=== PATIENT | male | born 1990 | race Caucasian/White ===

== ENCOUNTER 2016-10-10 14:14 | Emergency (ER) | payer SELFPAY ==
[~2016-10-10] VITALS: Ht 175.3 cm; Wt 61.2 kg
[~2016-10-10 14:14] MED LIST: AGM875T PO; AMOX500C2 PO; AZIT500T2; BSP10T PO; CPR250T PO; HSC375CCR PO; HYDR-34 PO; HYDR1TAB PO; HYDR1TAB86 PO; HYOS0.1216 PO; HYOS0.1217 PO; HYOS0.3710 PO; LEVO500T69 PO; NAPR-243 PO; ONDA-42 SL; ONDAN4ODT PO; PHEN200T27 PO; [UNRECOGNIZED DRUG - OTHER]
[2016-10-10] MEDS ORDERED: FLUORESCEIN (FLUOR-I-STRIPS) 1 MG STRP OU ONE (14:30)
[2016-10-10] MEDS ORDERED: TETRACAINE 0.5% OPHTH SOLN 15 ML BTL OU ONE (14:30)
[2016-10-10] MEDS ORDERED: BSS 15 ML IR ONE (14:30)
[2016-10-10] MEDS ORDERED: RX-GENTAMICIN 0.3% OP OINT 3.5 GM TUBE OP STA (14:38)
--- NOTE | 2016-10-10 14:49 | ED EENT ---
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 HE REPORTS FEELING LIKE THERE IS SOMETHING IN HIS EYE. HE DOES REPORT FLUSHING EYE RADIOLOGY THERAPIST. NO VISUAL CHANGES REPORTED AT THIS TIME. Source: patient Exam Limitations: no limitations History of Present Illness Time seen by provider: 14:46 Initial Comments To ER with foreign body sensation to the right eye. He was cutting trees at work today when it was windy and believes a piece of debris flew back and of the right eye. Denies vision changes. Timing/Duration: abrupt Severity: moderate Location: eye (R) Allergies and Home Medications Allergies Coded Allergies: NKANo Known Allergies (Unverified Allergy, Mild, 06/11/09) Home Medications Hyoscyamine Sulfate 0.125 Mg Tab #10 1-2 EACH PO Q4HR PRN PRN PRN ABDOMINAL PAIN Prescribed by: TON SANTOYO on 08/10/14 0201 Ondansetron Hcl 4 Mg Tab #5 4 MG SL Q4H FOR NAUSEA AND VOMITING Prescribed by: TON SANTOYO on 08/10/14 0201 Review of Systems Constitutional: see HPI Eyes: No Symptoms Reported Ears: See HPI Pain Nose: no symptoms reported Mouth: no symptoms reported Throat: no symptoms reported Respiratory: no symptoms reported Cardiovascular: no symptoms reported Musculoskeletal: no symptoms reported Skin: no symptoms reported Past Hxyaaqn-Zzkuya-Laqehq Hx Patient Social History Alcohol Use: Denies Use Recreational Drug Use: No Smoking Status: Current Everyday Smoker Recent Foreign Travel: No Contact w/Someone Who Travel: No Recent Infectious Disease Expo: No Recent Hopitalizations: No Physical Abuse Screen: No Sexual Abuse: No Immunizations Up To Date Tetanus Booster (TDap): Unknown Surgeries HX Surgeries: Yes (RENAL STENT) Surgeries: Tonsillectomy Respiratory Hx Respiratory Disorders: No Cardiovascular Hx Cardiac Disorders: Yes Cardiac Disorders: Heart Murmur Neurological Hx Neurological Disorders: No Reproductive System Hx Reproductive Disorders: No Sexually Transmitted Disease: No Genitourinary Hx 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 There is a small corneal abrasion noted to the superior aspect of the cornea. There is a small black less than 1 mm foreign body to the upper eyelid conjunctiva), bilateral eye EOMI, bilateral eye PERRL Ears: bilateral ear TM normal, bilateral ear auricle normal, bilateral ear canal normal Mouth/Throat: normal mouth inspection pharynx normal Neck: non-tender full range of motion Respiratory: no respiratory distress no accessory muscle use Neurologic/Psychiatric: alert normal mood/affect oriented x 3 Skin: normal color warm/dry Progress/Results/Core Measures Results/Orders My Orders Orders-SOPHIE RODRIGUEZ APRN Tetracaine 0.5% Ophth Soln (Tetracaine 0 (10/10/16 14:30) Fluorescein Strips (Qfdhl-J-Fqqejs) (10/10/16 14:30) Balanced Salt Irrigation Soln (Bss Irrig (10/10/16 14:30) Rx-Gentamicin Ophth Oint (Rx-Gentamicin (10/10/16 14:38) Medications Given in ED Current Medications Medications Dose Ordered Sig/Sabrina Route Start Time Stop Time Status Last Admin Dose Admin Balanced Salt Solution 15 ml ONCE ONCE IR 10/10/16 14:30 10/10/16 14:31 DC 10/10/16 14:29 15 ML Fluorescein Sodium 1 mg ONCE ONCE OU 10/10/16 14:30 10/10/16 14:31 DC 10/10/16 14:29 1 MG Tetracaine HCl 1 ml ONCE ONCE OU 10/10/16 14:30 10/10/16 14:31 DC 10/10/16 14:29 1 ML Vital Signs/I&O Vital Sign - Last 12Hours 10/10/16 14:30 Temp 98.9 Pulse 78 Resp 20 B/P 159/96 Pulse Ox 99 O2 Delivery Room Air Blood Pressure Mean: 117 Departure Impression Impression: Primary Impression: Corneal abrasion Qualified Code: S05.01XA - Injury of conjunctiva and corneal abrasion without foreign body, right eye, initial encounter Disposition: 01 HOME, SELF-CARE Condition: Stable Departure-Patient Inst. Decision time for Depature: 14:49 Referrals: BENJAMIN SINGH OD,LOCAL PHYSICIAN (PCP) Primary Care Physician Add. Discharge Instructions: 1. Medication as directed 2. Follow-up with Dr. Singh tomorrow if you're having persistent pain 3. Use 1/2 inch of the antibiotic ointment inside the lower eyelid 3 times daily for 3 days All discharge instructions reviewed with patient and/or family. Voiced understanding. Scripts Ketorolac Tromethamine (Acular)5 Ml Drops1 Drop OP Q6H PRN PAIN 2 Days Prov:SOPHIE RODRIGUEZ APRN 10/10/16 Hydrocodone/Acetaminophen ([place] 5-325 Tablet)1 Each Tablet1 Each PO Q4H PRN PAIN #10 TAB Prov:SOPHIE RODRIGUEZ APRN 10/10/16 Work/School Note: Work Release Form Date Seen in the Emergency Department: Oct 10, 2016 Return to Work: Oct 12, 2016 SOPHIE RODRIGUEZ APRN Oct 10, 2016 14:48
[2016-10-10] MEDS ORDERED: KETO5DRO OP (14:51)
[2016-10-10] MEDS ORDERED: HYDR-757 PO (14:51)
[2016-10-10 15:01] VITALS: BP 159/96
== END 2016-10-10 15:01 | disposition home or self-care (01) ==
LOC: EDUNIT# 14:14 → ER 14:17
DX: S05.01XA Injury of conjunctiva and corneal abrasion without foreign body, right eye, initial encounter (principal); T15.11XA Foreign body in conjunctival sac, right eye, initial encounter; W22.8XXA Striking against or struck by other objects, initial encounter; Y93.H9 Activity, other involving exterior property and land maintenance, building and construction; Y99.0 Civilian activity done for income or pay; F17.210 Nicotine dependence, cigarettes, uncomplicated
CPT/HCPCS: 99283

== ENCOUNTER 2017-02-11 17:52 | Emergency (ER) | payer SELFPAY ==
[~2017-02-11] VITALS: Ht 167.6 cm; Wt 54.4 kg
[~2017-02-11 17:52] MED LIST changes: +HYDR-757 PO; +KETO5DRO OP
--- NOTE | 2017-02-11 18:08 | ED GI ---
General Chief Complaint: Abdominal/GI Problems Stated Complaint: CHILLS/VOMITING/DIARRHEA Nursing Triage Note: to ER with mother with reports of vomiting and diarrhea. Patient reports that he has been under a lot of stress and had to turn his brother in to the police last night and has been nauseated and vomiting and had diarrhea since. Sepsis Screen: No Definite Risk Source of Information: Patient, Family (mom) Exam Limitations: No Limitations (GRICELDA HALL) History of Present Illness Time Seen By Provider: 18:00 Initial Comments Patient presents with a 1 day history of copious watery diarrhea red in nature he states he has been drinking red Gatorade all day. He states his diarrhea started after he stressed out after having to turn in his brother and he does not have a chronic history of constipation or diarrhea however he has had scopes in the past because of his weight loss and was told that they thought he had irritable bowel syndrome. He states his bowels are normally regular without constipation or soft or loose stools. He does not typically have much abdominal pain. He is having a little abdominal pain today and took an antacid that only made his diarrhea worse. He states in the past few months he has lost another 5 pounds and is in the process of getting an appointment with his primary doctor to get worked up. His mom had a history of hyperthyroidism and was very thin as a child. 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 He has never been tested for HIV or hepatitis. He does have multiple tattoos from a non-license alliance party. He will have 1 or 2 cigarettes a day but does not drink. He daily uses marijuana but does not use IV drugs of abuse. His son recently had a one day Hx of GE with diarrhea. (GRICELDA HALL) Allergies and Home Medications Allergies Coded Allergies: NKANo Known Allergies (Unverified Allergy, Mild, 06/11/09) Home Medications Hydrocodone/Acetaminophen 1 Each Tablet, 1 EACH PO Q4H PRN for PAIN, #10 Prescribed by: SOPHIE RODRIGUEZ on 10/10/16 1451 Hyoscyamine Sulfate 0.125 Mg Tab, 1-2 EACH PO Q4HR PRN PRN for ABDOMINAL PAIN, # 10 Prescribed by: MARCIE ESCOBAR on 08/10/14 0201 Hyoscyamine Sulfate 0.125 Mg Tab.subl, 1-2 TAB SL Q4H, #10 Prescribed by: MARCIE ESCOBAR on 02/11/172002 Ketorolac Tromethamine 5 Ml Drops, 1 DROP OP Q6H PRN for PAIN for 2 Days Prescribed by: SOPHIE RODRIGUEZ on 10/10/16 1451 Ondansetron 4 Mg Tab.rapdis, 4 MG PO Q4H, #10 Prescribed by: MARCIE ESCOBAR on 02/11/172002 Ondansetron Hcl 4 Mg Tab, 4 MG SL Q4H, #5 FOR NAUSEA AND VOMITING Prescribed by: MARCIE ESCOBAR on 08/10/14 0201 Review of Systems Constitutional: see HPI, chills, No diaphoresis, No fever, malaise, weight loss EENTM: No Symptoms Reported Respiratory: Denies Cough, Denies Shortness of Air Cardiovascular: Denies Chest Pain, Denies Lightheadedness, Denies Palpitations , Denies Syncope Gastrointestinal: See HPI, Denies Abdomen Distended, Abdominal Pain, Diarrhea ( 1 day), Denies Nausea, Denies Poor Appetite, Denies Poor Fluid Intake Musculoskeletal: No back pain, No joint pain Skin: No pruritus, No rash (GRCIELDA HALL) Past Cpwjcsr-Vcywlp-Lvypxp Hx Patient Social History Alcohol Use: Denies Use Recreational Drug Use: No Smoking Status: Current Everyday Smoker 2nd Hand Smoke Exposure: Yes Recent Foreign Travel: No Contact w/Someone Who Travel: No Recent Infectious Disease Expo: No Recent Hopitalizations: No (GRICELDA HALL) Alcohol Use: Occasionally Uses Recreational Drug Use: Yes (THC) Smoking Status: Current Everyday Smoker (1 PPD) (MARCIE ESCOBAR DO) Immunizations Up To Date Tetanus Booster (TDap): Unknown (GRICELDA HALL) Seasonal Allergies Seasonal Allergies: No (GRICELDA HALL) Surgeries HX Surgeries: Yes (RENAL STENT) Surgeries: Tonsillectomy (GRICELDA HALL) HX Surgeries: Yes (RIGHT URETERAL STENT-REMOVED) Surgeries: Adenoidectomy, Renal, Tonsillectomy (MARCIE ESCOBAR DO) Respiratory Hx Respiratory Disorders: No (GRICELDA HALL) Hx Respiratory Disorders: No (TIM ESCOBARA Zeeshan FELIPE) Cardiovascular Hx Cardiac Disorders: Yes Cardiac Disorders: Heart Murmur (GRICELDA HALL) Hx Cardiac Disorders: Yes Cardiac Disorders: Heart Murmur (YARELIS,MARCIE K DO) Neurological Hx Neurological Disorders: No (GRICELDA HALL J) Hx Neurological Disorders: No (YARELIS,MARCIE K DO) Reproductive System Hx Reproductive Disorders: No Sexually Transmitted Disease: No (GRICELDA HALL) Genitourinary Hx Genitourinary Disorders: Yes (OBSTRUCTION RIGHT URETEROPELVIC JUNCTION ) (ANGELITO HALLUS J) Hx Genitourinary Disorders: Yes (CHRONIC RIGHT UPJ OBSTRUCTION) (YARELIS,MARCIE K DO) Gastrointestinal Hx Gastrointestinal Disorders: Yes (IBS) Gastrointestinal Disorders: Irritable Bowel (GRICELDA HALL J) Hx Gastrointestinal Disorders: Yes Gastrointestinal Disorders: Irritable Bowel (YARELIS,MARCIE K DO) Musculoskeletal Hx Musculoskeletal Disorders: No (GRICELDA HALL) Hx Musculoskeletal Disorders: Yes Musculoskeletal Disorders: Scoliosis (YARELIS,MARCIE K DO) Endocrine Hx Endocrine Disorders: No (GRICELDA HALL) Hx Endocrine Disorders: No (YARELIS,MARCIE K DO) HEENT HX ENT Disorders: No (GRICELDA HALL) HX ENT Disorders: No (YARELIS,MARCIE K DO) Cancer Hx Cancer: No (YARELIS,MARCIE K DO) Psychosocial Hx Psychiatric Problems: No (GRICELDA HALL J) Hx Psychiatric Problems: No (YARELIS,MARCIE K DO) Integumentary HX Skin/Integumentary Disorder: No (YARELIS,MARCIE K DO) Blood Transfusions Hx Blood Disorders: No (GRICELDA HALL) Hx Blood Disorders: No (YARELIS,MARCIE K DO) Physical Exam Vital Signs VS - Last 72 Hours, by Label 02/11/17 02/11/17 17:58 20:29 Temp 98.2 98.2 Pulse 79 81 Resp 18 18 B/P (MAP) 134/91 Pulse Ox 100 98 O2 Delivery Room Air (YARELIS,MARCIE K DO) Vital Signs Capillary Refill : Less Than 3 Seconds (GRICELDA HALL) General Appearance: WD/WN, mild distress HEENT: PERRL/EOMI, pharynx normal Neck: full range of motion, normal inspection Respiratory: lungs clear, normal breath sounds Cardiovascular: normal peripheral pulses, regular rate, rhythm Gastrointestinal: normal bowel sounds, soft, no organomegaly, no pulsatile mass , tenderness (mild diffuse) Extremities: non-tender, normal inspection, no pedal edema Back: normal inspection, no CVA tenderness, no vertebral tenderness (GRICELDA HALL) Progress/Results/Core Measures Results/Orders Lab Results Laboratory Tests Test 02/11/17 18:10 02/11/17 19:18 Range/Units White Blood Count 11.0 4.3-11.0 10^3/uL Red Blood Count 4.99 4.35-5.85 10^6/uL Hemoglobin 15.6 13.3-17.7 G/DL Hematocrit 45 40-54 % Mean Corpuscular Volume 90 80-99 FL Mean Corpuscular Hemoglobin 31 25-34 PG Mean Corpuscular Hemoglobin Concent 35 32-36 G/DL Red Cell Distribution Width 12.2 10.0-14.5 % Platelet Count 197 130-400 10^3/uL Mean Platelet Volume 9.9 7.4-10.4 FL Neutrophils (%) (Auto) 88 H 42-75 % Lymphocytes (%) (Auto) 5 L 12-44 % Monocytes (%) (Auto) 7 0-12 % Eosinophils (%) (Auto) 0 0-10 % Basophils (%) (Auto) 0 0-10 % Neutrophils # (Auto) 9.7 H 1.8-7.8 X 10^3 Lymphocytes # (Auto) 0.6 L 1.0-4.0 X 10^3 Monocytes # (Auto) 0.7 0.0-1.0 X 10^3 Eosinophils # (Auto) 0.0 0.0-0.3 10^3/uL Basophils # (Auto) 0.0 0.0-0.1 10^3/uL Neutrophils % (Manual) 83 % Lymphocytes % (Manual) 8 % Monocytes % (Manual) 9 % Eosinophils % (Manual) 0 % Basophils % (Manual) 0 % Band Neutrophils 0 % Blood Morphology Comment NORMAL Sodium Level 139 135-145 MMOL/L Potassium Level 3.9 3.6-5.0 MMOL/L Chloride Level 103 98-107 MMOL/L Carbon Dioxide Level 27 21-32 MMOL/L Anion Gap 9 5-14 MMOL/L Blood Urea Nitrogen 13 7-18 MG/DL Creatinine 0.85 0.60-1.30 MG/DL Estimat Glomerular Filtration Rate > 60 BUN/Creatinine Ratio 15 Glucose Level 109 H 70-105 MG/DL Calcium Level 9.6 8.5-10.1 MG/DL Magnesium Level 2.3 1.8-2.4 MG/DL Total Bilirubin 1.7 H 0.1-1.0 MG/DL Aspartate Amino Transf (AST/SGOT) 19 5-34 U/L Alanine Aminotransferase (ALT/SGPT) 18 0-55 U/L Alkaline Phosphatase 55 40-136 U/L Total Protein 6.8 6.4-8.2 G/DL Albumin 4.8 H 3.2-4.5 G/DL Amylase Level 30 25-125 U/L Lipase 9 8-78 U/L Thyroid Stimulating Hormone (TSH) 0.42 0.35-4.94 UIU/ML Urine Color YELLOW Urine Clarity CLEAR Urine pH 6 5-9 Urine Specific [place] 1.015 L 1.016-1.022 Urine Protein 1+ H NEGATIVE Urine Glucose (UA) NEGATIVE NEGATIVE Urine Ketones NEGATIVE NEGATIVE Urine Nitrite NEGATIVE NEGATIVE Urine Bilirubin NEGATIVE NEGATIVE Urine Urobilinogen NORMAL NORMAL MG/DL Urine Leukocyte Esterase NEGATIVE NEGATIVE Urine RBC (Auto) NEGATIVE NEGATIVE Urine RBC RARE /HPF Urine WBC RARE /HPF Urine Crystals NONE /LPF Urine Bacteria NEGATIVE /HPF Urine Casts NONE /LPF Urine Mucus LARGE H /LPF Urine Culture Indicated NO Urine Opiates Screen NEGATIVE NEGATIVE Urine Oxycodone Screen NEGATIVE NEGATIVE Urine Methadone Screen NEGATIVE NEGATIVE Urine Propoxyphene Screen NEGATIVE NEGATIVE Urine Barbiturates Screen NEGATIVE NEGATIVE Ur Tricyclic Antidepressants Screen NEGATIVE NEGATIVE Urine Phencyclidine Screen NEGATIVE NEGATIVE Urine Amphetamines Screen NEGATIVE NEGATIVE Urine Methamphetamines Screen NEGATIVE NEGATIVE Urine Benzodiazepines Screen NEGATIVE NEGATIVE Urine Cocaine Screen NEGATIVE NEGATIVE Urine Cannabinoids Screen POSITIVE H NEGATIVE (MARCIE ESCOBAR DO) My Orders Orders - MARCIE ESCOBAR DO Ua Culture If Indicated (02/11/17 18:25) Saline Lock/Iv-Start (02/11/17 18:43) Lactated Ringers (Lr 1000 Ml Iv Solution (02/11/17 18:43) Ct Abdomen/Pelvis W (02/11/17 18:44) Acute Abd Series (02/11/17 18:44) Drug Screen Stat (Urine) (02/11/17 18:45) Iohexol Injection (Omnipaque 350 Mg/Ml 1 (02/11/17 19:00) Ns (Ivpb) (Sodium Chloride 0.9% Ivpb Bag (02/11/17 19:00) Rx-Hyoscyamine Tab (Rx-Levsin Sl) (02/11/17 20:04) Rx-Ondansetron Po (Rx-Zofran Po) (02/11/17 20:04) Rx-Hyoscyamine Tab (Rx-Levsin Sl) (02/11/17 20:15) Rx-Ondansetron Po (Rx-Zofran Po) (02/11/17 20:15) (MARCIE ESCOBAR DO) Medications Given in ED Current Medications Medications Dose Ordered Sig/Sabrina Route Start Time Stop Time Status Last Admin Dose Admin Iohexol 100 ml ONCE ONCE IV 02/11/17 19:00 02/11/17 20:29 DC 02/11/17 18:59 100 ML Lactated Ringer's 1,000 ml @ 0 mls/hr Q0M ONCE IV 02/11/17 18:43 02/11/17 18:44 DC 02/11/17 19:17 0 MLS/HR Sodium Chloride 100 ml ONCE ONCE IV 02/11/17 19:00 02/11/17 20:29 DC 02/11/17 19:00 80 ML (MARCIE ESCOBAR DO) Vital Signs/I&O Vital Sign - Last 12Hours 02/11/17 02/11/17 17:58 20:29 Temp 98.2 98.2 Pulse 79 81 Resp 18 18 B/P (MAP) 134/91 Pulse Ox 100 98 O2 Delivery Room Air (MARCIE ESCOBAR DO) Blood Pressure Mean: 105 Progress Note : Time: 18:13 Progress Note His 1 day history of diarrhea is not as concerning symptoms light of his cachectic appearance and recent weight loss. Would add thyroid panel and HIV. Have impressed upon him that he will need to follow-up with a primary care physician to continue this workup. (GRICELDA HALL) Progress Note : Progress Note 1809--ASSUMED CARE FROM DR. HALL, ALL STUDIES PENDING NO VOMITING OR DIARRHEA DURING ER STAY--STATES HE FEELS BETTER (MARCIE ESCOBAR DO) Diagnostic Imaging Comments ACUTE ABDOMEN XRAYS--SCOLIOSIS, OTHERWISE NO ACUTE PROCESS CT ABDOMEN / PELVIS--NO ACUTE PROCESS, CHRONIC RIGHT UPJ OBSTRUCTION PER RADIOLOGIST REPORTS @ 195 Reviewed: Reviewed by Me (MARCIE ESCOBAR DO) Transfer of Care Transfer of Care Time: 18:18 Care transferred to: Marcie Escobar MD (GRICELDA HALL) Departure Impression Impression: Primary Impression: Gastroenteritis Additional Impressions: CHRONIC RIGHT UPJ OBSTRUCTION Illicit drug use Disposition: HOME, SELF-CARE Condition: Stable Departure-Patient Inst. Referrals: NO,LOCAL PHYSICIAN (PCP/Family) Primary Care Physician Patient Instructions: Viral Gastroenteritis, Adult (DC) Add. Discharge Instructions: CLEAR LIQUIDS--WATER, BROTH, JELLO, GATORADE TOMORROW IF YOU ARE BETTER, ADD BRATS DIET TO CLEAR LIQUIDS FOLLOW UP WITH [facility] IN 2 DAYS IF NO BETTER RETURN TO ER IF WORSE All discharge instructions reviewed with patient and/or family. Voiced understanding. Scripts Ondansetron (Zofran Odt) 4 Mg Tab.rapdis 4 MG PO Q4H for Nausea/Vomiting, #10 TAB Prov: MARCIE ESCOBAR DO 02/11/17 Hyoscyamine Sulfate (Levsin-Sl) 0.125 Mg Tab.subl 1-2 TAB SL Q4H for Abdominal Pain, #10 TAB Prov: MARCIE ESCOBAR DO 02/11/17 GRICELDA HALL February 11, 2017 18:08 MARCIE ESCOBAR DO February 11, 2017 19:03
[2017-02-11 18:18] LABS: BASOPHILS % (AUTO) 0 % (0-10); EOSINOPHILS % (AUTO) 0 % (0-10); LYMPHOCYTES # (AUTO) 0.6 X 10^3 (1.0-4.0); LYMPHOCYTES % (AUTO) 5 % (12-44); MEAN CORPUSCULAR HEMOGLOBIN 31 PG (25-34); MEAN CORPUSCULAR HGB CONC 35 G/DL (32-36); MEAN CORPUSCULAR VOLUME 90 FL (80-99); MEAN PLATELET VOLUME 9.9 FL (7.4-10.4); MONOCYTES # (AUTO) 0.7 X 10^3 (0.0-1.0); MONOCYTES % (AUTO) 7 % (0-12); NEUTROPHILS # (AUTO) 9.7 X 10^3 (1.8-7.8); NEUTROPHILS % (AUTO) 88 % (42-75); PLATELET COUNT 197 10^3/uL (130-400); RED BLOOD COUNT 4.99 10^6/uL (4.35-5.85); RED CELL DISTRIBUTION WIDTH 12.2 % (10.0-14.5)
[2017-02-11 18:38] LABS: BAND NEUTROPHILS 0 %; LYMPHOCYTES % (MANUAL) 8 %; NEUTROPHILS % (MANUAL) 83 %
[2017-02-11 18:39] LABS: BASOPHILS % (MANUAL) 0 %; EOSINOPHILS % (MANUAL) 0 %
[2017-02-11 18:40] LABS: ALANINE AMINOTRANSFERASE 18 U/L (0-55); ALBUMIN 4.8 G/DL (3.2-4.5); AMYLASE 30 U/L (25-125); ANION GAP 9 MMOL/L (5-14); ASPARTATE AMINO TRANSFERASE 19 U/L (5-34); BILIRUBIN,TOTAL 1.7 MG/DL (0.1-1.0); BLOOD UREA NITROGEN 13 MG/DL (7-18); BUN/CREATININE RATIO 15; CALCIUM 9.6 MG/DL (8.5-10.1); CARBON DIOXIDE 27 MMOL/L (21-32); CHLORIDE 103 MMOL/L (98-107); CREATININE SERUM 0.85 MG/DL (0.60-1.30); GFR ESTIMATED > 60; GLUCOSE 109 MG/DL (70-105); LIPASE 9 U/L (8-78); MAGNESIUM 2.3 MG/DL (1.8-2.4); POTASSIUM 3.9 MMOL/L (3.6-5.0); SODIUM 139 MMOL/L (135-145); TOTAL PROTEIN 6.8 G/DL (6.4-8.2)
[2017-02-11] MEDS ORDERED: LACTATED RINGERS 1,000 ML IV ONE (18:43)
[2017-02-11 19:00] LABS: THYROID STIMULATING HORMONE 0.42 UIU/ML (0.35-4.94)
[2017-02-11] MEDS ORDERED: NS 100 ML (IVPB) BAG IV ONE (19:00)
[2017-02-11] MEDS ORDERED: IOHEXOL 350 MG/ML 100 ML (OMNIPAQUE 350) VIAL IV ONE (19:00)
[2017-02-11 19:24] LABS: BILIRUBIN,URINE NEGATIVE (NEGATIVE); KETONES,URINE NEGATIVE (NEGATIVE); LEUKOCYTE ESTERASE ,URINE NEGATIVE (NEGATIVE); NITRITE,URINE NEGATIVE (NEGATIVE); PH,URINE 6 (5-9); PROTEIN,URINE 1+ (NEGATIVE); UROBILINOGEN,URINE NORMAL (NORMAL)
[2017-02-11 19:43] LABS: WBC,URINE RARE /HPF
--- NOTE | 2017-02-11 19:43 | Diagnostic Imaging Report ---
CLINICAL INDICATION: Patient with severe mid abdominal pain with nausea and diarrhea since last night. EXAMS: X-ray of the chest PA view and x-ray of the abdomen supine and upright views. COMPARISONS: X-ray of the abdomen dated 08/24/2011. FINDINGS: LUNGS/ PLEURA: Lungs are clear. There is no pneumothorax. There is no pleural effusion. MEDIASTINUM: Unremarkable. PULMONARY VASCULATURE: Unremarkable. HEART: Unremarkable. BONES/ EXTRATHORACIC SOFT TISSUE: There is dextroscoliosis of the thoracic spine. ABDOMEN AND PELVIS: Unremarkable x-ray of the abdomen with nonobstructed bowel gas pattern. There is no evidence of abdominal free air. There are no focal calcifications overlying the expected regions/ pathways of both kidneys, ureters, and bladder regions. IMPRESSION: 1: Unremarkable chest x-ray exam with no radiographic evidence of acute cardiopulmonary process. 2: Unremarkable x-ray of the abdomen. 3: There is dextroscoliosis of the thoracic spine. Dictated by: Dictated on workstation # [id number]
--- NOTE | 2017-02-11 19:53 | Diagnostic Imaging Report ---
CLINICAL INDICATION: Patient with upper abdominal pain with nausea, vomiting, and diarrhea x10 hours. Patient has left renal stent. EXAM: CT scan of the abdomen and pelvis performed with 100 cc Omnipaque 350 IV contrast. Coronal and sagittal reformatted images are created. COMPARISON: CT scan of abdomen and pelvis with contrast dated 08/10/2014. FINDINGS: Lung bases are clear. Again seen levoscoliosis of the thoracolumbar spine. Again seen moderate to severe right hydronephrosis which appears to represent right UPJ obstruction. The degree of right hydronephrosis has slightly decreased in size with the AP dimension of the renal pelvis measuring 3.6 cm in AP dimension compared to the prior study measured at 3.9 cm. Otherwise, both kidneys show no other significant abnormality. There is no urinary tract stones. There is no perinephric fat stranding. The liver, spleen, pancreas, adrenal glands, and gallbladder are unremarkable and stable. The small and large bowel show no significant interval abnormality. The appendiceal region is not visualized on this exam due to closely packed intestines and intra-abdominal structures. There is no intra-abdominal free air or free fluid. Bladder is fluid distended with no gross abnormality. The extra-abdominal and extrapelvic soft tissue structures are unremarkable. IMPRESSION: 1.: There is slight decreased size of the moderate to severe right hydronephrosis likely related to UPJ obstruction. 2.: Otherwise stable CT scan of the abdomen and pelvis. Dictated by: Dictated on workstation # [id number]
[2017-02-11] MEDS ORDERED: HYOS0.1283 SL (20:03)
[2017-02-11] MEDS ORDERED: ONDA4TAB8 PO (20:03)
[2017-02-11] MEDS ORDERED: RX-HYOSCYAMINE 0.125 MG SL (LEVSIN) PPK#6 SL STA (20:04)
[2017-02-11] MEDS ORDERED: RX-ONDANSETRON 4 MG ODT (ZOFRAN) PPK #4 PO STA (20:04)
[2017-02-11] MEDS ORDERED: RX-HYOSCYAMINE 0.125 MG SL (LEVSIN) PPK#6 ONE (20:15)
[2017-02-11] MEDS ORDERED: RX-ONDANSETRON 4 MG ODT (ZOFRAN) PPK #4 ONE (20:15)
[2017-02-11 20:29] VITALS: BP 130/79
== END 2017-02-11 20:29 | disposition home or self-care (01) ==
LOC: EDUNIT# 17:52 → ER 17:53
DX: K52.9 Noninfective gastroenteritis and colitis, unspecified (principal); N13.30 Unspecified hydronephrosis; R11.2 Nausea with vomiting, unspecified; M41.34 Thoracogenic scoliosis, thoracic region; Q63.9 Congenital malformation of kidney, unspecified; F17.210 Nicotine dependence, cigarettes, uncomplicated; F12.90 Cannabis use, unspecified, uncomplicated; Z79.899 Other long term (current) drug therapy
CPT/HCPCS: 36415; 74022; 74177; 80053; 80306; 81000; 82150; 83690; 83735; 84443; 85007; 85027; 86703; 96360

== ENCOUNTER → 2017-02-18 | Emergency (ER) | payer SELFPAY ==
[~2017-02-18] VITALS: Ht 175.3 cm; Wt 55.8 kg
[~2017-02-18] MED LIST changes: +AMOXICILLIN 500 MG (POLYMOX) CAP PO STA; +HYDR-3816 PO; +HYOS0.1283 SL; +LIDOCAINE 2% VISCOUS 15 ML UDC ONE; +LIDOCAINE 2% VISCOUS 15 ML UDC PO ONE; +LIDOCAINE JELLY 2% (XYLOCAINE) 30 ML TUBE TOP ONE; +ONDA4TAB8 PO; +RX-HYDROCODONE/APAP 5/325 MG #4 TAB PK PO PRN
--- NOTE | 2017-02-18 01:59 | ED EENT ---
History of Present Illness General Chief Complaint: Dental Problems/Pain Stated Complaint: TOOTH PAIN Nursing Triage Note: Pt. advises he has been experiencing dental pain x 3 days that has become progressively worse. Source: patient Exam Limitations: no limitations History of Present Illness Time seen by provider: 01:45 Initial Comments Here with report of right lower posterior jaw pain for the last few days but much worse tonight. Take 800 mg ibuprofen and that has not helped. He has been trying to get the dentist but has been unable to as of yet. Denies breathing or swallowing problems. Denies nausea or vomiting. Timing/Duration: gradual Severity: moderate Location: mouth, dental Associated Symptoms: No drooling, facial pain/swelling, No fever, No sore throat, tooth pain, No voice change Allergies and Home Medications Allergies Coded Allergies: NKANo Known Allergies (Unverified Allergy, Mild, 02/18/17) Home Medications Hydrocodone/Acetaminophen 1 Each Tablet, 1 EACH PO Q4H PRN for PAIN, #10 Prescribed by: SOPHIE RODRIGUEZ on 10/10/16 1451 Hyoscyamine Sulfate 0.125 Mg Tab, 1-2 EACH PO Q4HR PRN PRN for ABDOMINAL PAIN, # 10 Prescribed by: TON SANTOYO on 08/10/14 0201 Hyoscyamine Sulfate 0.125 Mg Tab.subl, 1-2 TAB SL Q4H, #10 Prescribed by: TON SANTOYO on 02/11/172002 Ketorolac Tromethamine 5 Ml Drops, 1 DROP OP Q6H PRN for PAIN for 2 Days Prescribed by: SOPHIE RODRIGUEZ on 10/10/16 1451 Ondansetron 4 Mg Tab.rapdis, 4 MG PO Q4H, #10 Prescribed by: TON SANTOYO on 02/11/17 2003 Ondansetron Hcl 4 Mg Tab, 4 MG SL Q4H, #5 FOR NAUSEA AND VOMITING Prescribed by: TON SANTOYO on 08/10/14 0201 Review of Systems Constitutional: see HPI, No chills, No fever Ears: No Symptoms Reported Nose: no symptoms reported Mouth: see HPI, pain, swelling Throat: no symptoms reported Respiratory: no symptoms reported Cardiovascular: no symptoms reported Gastrointestinal: no symptoms reported Past Vennhnf-Uhmjzg-Drzblq Hx Patient Social History Alcohol Use: Denies Use Recreational Drug Use: No Drug of Choice: Marijuana daily Smoking Status: Never a Smoker 2nd Hand Smoke Exposure: Yes Recent Foreign Travel: No Contact w/Someone Who Travel: No Recent Infectious Disease Expo: No Recent Hopitalizations: No Immunizations Up To Date Tetanus Booster (TDap): Unknown Seasonal Allergies Seasonal Allergies: No Surgeries HX Surgeries: Yes (RIGHT URETERAL STENT-REMOVED) Surgeries: Adenoidectomy, Renal, Tonsillectomy Respiratory Hx Respiratory Disorders: No Cardiovascular Hx Cardiac Disorders: Yes Cardiac Disorders: Heart Murmur Neurological Hx Neurological Disorders: No Reproductive System Hx Reproductive Disorders: No Sexually Transmitted Disease: No Genitourinary Hx Genitourinary Disorders: Yes (CHRONIC RIGHT UPJ OBSTRUCTION) Gastrointestinal Hx Gastrointestinal Disorders: Yes Gastrointestinal Disorders: Irritable Bowel Musculoskeletal Hx Musculoskeletal Disorders: Yes Musculoskeletal Disorders: Scoliosis Endocrine Hx Endocrine Disorders: No HEENT HX ENT Disorders: No Cancer Hx Cancer: No Psychosocial Hx Psychiatric Problems: No Integumentary HX Skin/Integumentary Disorder: No Blood Transfusions Hx Blood Disorders: No Reviewed Nursing Assessment Reviewed/Agree w Nursing PMH: Yes Family Medical History Significant Family History: No Pertinent Family Hx Physical Exam Vital Signs Vital Sign - Last 12Hours 02/18/17 01:48 Temp 98.7 Pulse 78 Resp 14 B/P (MAP) 132/91 Pulse Ox 98 O2 Delivery Room Air General Appearance: WD/WN, no apparent distress Eyes: bilateral eye EOMI, bilateral eye PERRL, bilateral eye normal inspection Nose: normal inspection Mouth/Throat: pharynx normal, dental tenderness (right lower wisdom tooth and rear molar on right) Neck: full range of motion, supple Cardiovascular: regular rate, rhythm, no murmur Respiratory: lungs clear, normal breath sounds Gastrointestinal: non tender, soft Neurologic/Psychiatric: alert, oriented x 3 Skin: normal color, warm/dry Progress/Results/Core Measures Results/Orders My Orders Orders - RICHARD FIERRO MD Lidocaine 2% Jelly 30 Ml (Xylocaine Jell (02/18/17 02:00) Rx-Hydrocodone/Apap 5-325 Mg (Rx-Vicodin (02/18/17 02:00) Amoxicillin Capsule (Polymox Capsule) (02/18/17 01:52) Vital Signs/I&O Vital Sign - Last 12Hours 02/18/17 01:48 Temp 98.7 Pulse 78 Resp 14 B/P (MAP) 132/91 Pulse Ox 98 O2 Delivery Room Air Blood Pressure Mean: 105 Progress Note : Progress Note Seen and evaluated. Lidocaine jelly topical. Hydrocodone go pack and amoxicillin 1000 mg by mouth. Discharged home with return precautions. Patient verbalize understanding instructions and agreement with plan. Departure Impression Impression: Primary Impression: Dental caries Additional Impression: Acute pericoronitis Disposition: HOME, SELF-CARE Condition: Improved Departure-Patient Inst. Decision time for Depature: 01:57 Referrals: NO,LOCAL PHYSICIAN (PCP/Family) Primary Care Physician Patient Instructions: Dental Pain (DC), Gingivitis (DC) Add. Discharge Instructions: All discharge instructions reviewed with patient and/or family. Voiced understanding. Take medications as directed. Follow-up with a dentist as soon as possible. Rinse mouth twice daily with saltwater solution as discussed. Return for worse pain, swelling, swallowing or breathing problems or other concerns as needed. Continue to brush teeth twice daily. Scripts Hydrocodone/Acetaminophen (Hydrocodon-Acetaminoph 7.5-325) 1 Each Tablet 1 EACH PO Q6H, #10 TAB 0 Refills Prov: RICHARD FIERRO MD 02/18/17 Amoxicillin (Amoxicillin) 500 Mg Capsule 500 MG PO TID, #30 CAP 0 Refills Prov: RICHARD FIERRO MD 02/18/17 RICHARD FIERRO MD February 18, 2017 01:59
[2017-02-18 02:13] VITALS: BP 132/91
== END | disposition home or self-care (01) ==
LOC: EDUNIT# 01:38 → ER 01:41
DX: K05.20 Aggressive periodontitis, unspecified (principal); K02.9 Dental caries, unspecified
CPT/HCPCS: 99283

== ENCOUNTER 2017-06-20 16:09 | Emergency (ER) | payer OTHER ==
[~2017-06-20] VITALS: Ht 175.3 cm; Wt 55.8 kg
[~2017-06-20 16:09] MED LIST changes: -AMOXICILLIN 500 MG (POLYMOX) CAP PO STA; -LIDOCAINE 2% VISCOUS 15 ML UDC ONE; -LIDOCAINE 2% VISCOUS 15 ML UDC PO ONE; -LIDOCAINE JELLY 2% (XYLOCAINE) 30 ML TUBE TOP ONE; -RX-HYDROCODONE/APAP 5/325 MG #4 TAB PK PO PRN
--- NOTE | 2017-06-20 16:28 | ED Cardiac General ---
History of Present Illness General Chief Complaint: Cardiac/General Problems Stated Complaint: HIGH HEART RATE Nursing Triage Note: Patient reports palpitations x 1 week Source: patient Exam Limitations: no limitations History of Present Illness Time seen by provider: 16:26 Initial Comments To ER with reports of sweating a lot and palpitations for one week. He also has some shortness of breath. He feels as though his heart is beating quickly. He's never had this before. He does state that he feels a little bit anxious and he has a nervous person. Denies any drug use. States "I'll just randomly be listening to his son and start crying". States that he has blood pressure that he is checked at home and found it to be elevated and became very worried about this. Timing/Duration: intermittent Severity: mild NTG SL TOP KNITTER: No ASA po TOP KNITTER: No Allergies and Home Medications Allergies Coded Allergies: NKANo Known Allergies (Unverified Allergy, Mild, 02/18/17) Home Medications Amoxicillin 500 Mg Capsule, 500 MG PO TID, #30 Ref 0 Prescribed by: RICHARD FIERRO on 02/18/17 015 Hydrocodone/Acetaminophen 1 Each Tablet, 1 EACH PO Q4H PRN for PAIN, #10 Prescribed by: SOPHIE RODRIGUEZ on 10/10/16 1451 Hydrocodone/Acetaminophen 1 Each Tablet, 1 EACH PO Q6H, #10 Ref 0 Prescribed by: RICHARD FIERRO on 02/18/17 015 Hyoscyamine Sulfate 0.125 Mg Tab, 1-2 EACH PO Q4HR PRN PRN for ABDOMINAL PAIN, # 10 Prescribed by: TON SANTOYO on 08/10/14 020 Hyoscyamine Sulfate 0.125 Mg Tab.subl, 1-2 TAB SL Q4H, #10 Prescribed by: TON SANTOYO on 02/11/172002 Ketorolac Tromethamine 5 Ml Drops, 1 DROP OP Q6H PRN for PAIN for 2 Days Prescribed by: SOPHIE RODRIGUEZ on 10/10/16 145 Ondansetron 4 Mg Tab.rapdis, 4 MG PO Q4H, #10 Prescribed by: TON SANTOYO on 02/11/172002 Ondansetron Hcl 4 Mg Tab, 4 MG SL Q4H, #5 FOR NAUSEA AND VOMITING Prescribed by: TON SANTOYO on 08/10/14 020 Review of Systems Constitutional: see HPI EENTM: No Symptoms Reported Respiratory: No Symptoms Reported Cardiovascular: No Symptoms Reported Past Cmlsuqv-Gajfiq-Rytybm Hx Patient Social History Alcohol Use: Denies Use Recreational Drug Use: No Drug of Choice: Marijuana daily Smoking Status: Never a Smoker 2nd Hand Smoke Exposure: Yes Recent Foreign Travel: No Contact w/Someone Who Travel: No Recent Infectious Disease Expo: No Recent Hopitalizations: No Immunizations Up To Date Tetanus Booster (TDap): Unknown Seasonal Allergies Seasonal Allergies: No Surgeries History of Surgeries: Yes (RENAL STENT) Surgeries: Adenoidectomy, Renal, Tonsillectomy Respiratory History of Respiratory Disorde: No Cardiovascular History of Cardiac Disorders: Yes Cardiac Disorders: Heart Murmur Neurological History of Neurological Disord: No Reproductive System Hx Reproductive Disorders: No Sexually Transmitted Disease: No Genitourinary History of Genitourinary Disor: No Gastrointestinal History of Gastrointestinal Di: Yes (IBS) Gastrointestinal Disorders: Irritable Bowel Musculoskeletal History of Musculoskeletal Dis: No Musculoskeletal Disorders: Scoliosis Endocrine History of Endocrine Disorders: No HEENT History of HEENT Disorders: No Cancer History of Cancer: No Psychosocial History of Psychiatric Problem: No Integumentary History of Skin or Integumenta: No Blood Transfusions History of Blood Disorders: No Family Medical History Significant Family History: No Pertinent Family Hx Physical Exam Vital Signs Vital Sign - Last 12Hours 06/20/17 16:16 Temp 97.6 Pulse 84 Resp 18 B/P (MAP) 146/104 Pulse Ox 99 Capillary Refill : Less Than 3 Seconds General Appearance: No Apparent Distress, WD/WN, Anxious, Thin HEENT: PERRL/EOMI, TMs Normal Neck: Full Range of Motion, Normal Inspection Respiratory: Normal Breath Sounds, No Accessory Muscle Use, No Respiratory Distress Cardiovascular: Regular Rate, Rhythm, Normal Peripheral Pulses Gastrointestinal: Normal Bowel Sounds, Non Tender, Soft Extremity: Normal Capillary Refill, Normal Inspection Neurologic/Psychiatric: Alert, Oriented x3, No Motor/Sensory Deficits Skin: Normal Color, Warm/Dry Other comments Very pleasant and polite gentleman Progress/Results/Core Measures Results/Orders Lab Results Laboratory Tests Test 06/20/17 16:23 Range/Units White Blood Count 7.9 4.3-11.0 10^3/uL Red Blood Count 4.91 4.35-5.85 10^6/uL Hemoglobin 15.6 13.3-17.7 G/DL Hematocrit 44 40-54 % Mean Corpuscular Volume 90 80-99 FL Mean Corpuscular Hemoglobin 32 25-34 PG Mean Corpuscular Hemoglobin Concent 36 32-36 G/DL Red Cell Distribution Width 11.7 10.0-14.5 % Platelet Count 253 130-400 10^3/uL Mean Platelet Volume 9.8 7.4-10.4 FL Neutrophils (%) (Auto) 56 42-75 % Lymphocytes (%) (Auto) 36 12-44 % Monocytes (%) (Auto) 6 0-12 % Eosinophils (%) (Auto) 1 0-10 % Basophils (%) (Auto) 0 0-10 % Neutrophils # (Auto) 4.4 1.8-7.8 X 10^3 Lymphocytes # (Auto) 2.8 1.0-4.0 X 10^3 Monocytes # (Auto) 0.5 0.0-1.0 X 10^3 Eosinophils # (Auto) 0.1 0.0-0.3 10^3/uL Basophils # (Auto) 0.0 0.0-0.1 10^3/uL Erythrocyte Sedimentation Rate 1 0-15 MM/HR Sodium Level 141 135-145 MMOL/L Potassium Level 3.4 L 3.6-5.0 MMOL/L Chloride Level 106 98-107 MMOL/L Carbon Dioxide Level 26 21-32 MMOL/L Anion Gap 9 5-14 MMOL/L Blood Urea Nitrogen 11 7-18 MG/DL Creatinine 0.84 0.60-1.30 MG/DL Estimat Glomerular Filtration Rate > 60 BUN/Creatinine Ratio 13 Glucose Level 88 70-105 MG/DL Calcium Level 9.3 8.5-10.1 MG/DL Total Bilirubin 0.8 0.1-1.0 MG/DL Aspartate Amino Transf (AST/SGOT) 20 5-34 U/L Alanine Aminotransferase (ALT/SGPT) 24 0-55 U/L Alkaline Phosphatase 53 40-136 U/L C-Reactive Protein High Sensitivity 0.01 0.00-0.50 MG/DL Total Protein 6.9 6.4-8.2 GM/DL Albumin 4.7 H 3.2-4.5 GM/DL Thyroid Stimulating Hormone (TSH) 0.84 0.35-4.94 UIU/ML Free Thyroxine 1.15 0.70-1.48 NG/DL My Orders Orders - SOPHIE RODRIGUEZ CARTON REPAIRER Cbc With Automated Diff (06/20/17 16:24) Comprehensive Metabolic Panel (06/20/17 16:24) Ua Culture If Indicated (06/20/17 16:24) Drug Screen Stat (Urine) (06/20/17 16:24) Thyroid Stimulating Hormone (06/20/17 16:24) Free T4 (Free Thyroxine) (06/20/17 16:24) Erythrocyte Sedimentation Rate (06/20/17 16:24) Hs C Reactive Protein (06/20/17 16:24) Ekg Tracing (06/20/17 16:24) Chest Pa/Lat (2 View) (06/20/17 16:24) Saline Lock/Iv-Start (06/20/17 16:24) Lorazepam (06/20/17 16:24) Lorazepam Injection (Ativan Injection) (06/20/17 16:30) Medications Given in ED Current Medications Medications Dose Ordered Sig/Sabrina Route Start Time Stop Time Status Last Admin Dose Admin Lorazepam 0.5 mg ONCE ONCE IVP 06/20/17 16:30 06/20/17 16:31 DC 06/20/17 17:21 0.5 MG Vital Signs/I&O Vital Sign - Last 12Hours 06/20/17 16:16 Temp 97.6 Pulse 84 Resp 18 B/P (MAP) 146/104 Pulse Ox 99 Blood Pressure Mean: 118 Diagnostic Imaging Diagonstic Imaging: Xray Comments NAME: IDALIALEN Evelyn MED REC#: [id number] PT STATUS: REG ER : 1990 PHYSICIAN: SOPHIE RODRIGUEZ CARTON REPAIRER ADMIT DATE: 06/20/17/ER Draft Date of Exam:06/20/17 CHEST PA/LAT (2 VIEW) INDICATION: Weakness. COMPARISON: 02/11/2017. FINDINGS: Frontal and lateral views of the chest demonstrate stable scoliosis. The lungs remain clear. No infiltrate is identified. The heart is normal. There is no pneumothorax. IMPRESSION: No acute cardiopulmonary findings. Dictated on workstation # [id number] Dict: 06/20/17 1647 Trans: 06/20/17 9811 [id number] Interpreted by: MELY SNYDER Electronically signed by: Departure Communication (Admissions) Progress Notes 1800- patient states that the Ativan did help a little bit. Blood pressure down to 138/94. Heart rate down to 60 sinus. No ectopy. Labs are perfect. I discussed this with him. He states "life just has me down, I'm in a bad place ". I did offer to start him on an antidepressant would also help with anxiety. He declines. He states "I think I just need to talk to a counselor". I will provide him with the [facility] save line number to arrange outpatient services. Impression Impression: Primary Impression: Anxiety Additional Impression: Palpitations Disposition: 01 HOME, SELF-CARE Condition: Stable Departure-Patient Inst. Decision time for Depature: 18:00 Referrals: NO,LOCAL PHYSICIAN (PCP/Family) Primary Care Physician Patient Instructions: Anxiety, Adult (DC), Palpitations (DC) Add. Discharge Instructions: 1. Return to ER for any concerns 2. Call [facility] line (also called the "save line") at anytime 24 hours a day for emergencies but they can also help to arrange outpatient services. All discharge instructions reviewed with patient and/or family. Voiced understanding. SOPHIE RODRIGUEZ CARTON REPAIRER Jun 20, 2017 16:28
[2017-06-20] MEDS ORDERED: LORazepam INJ 2 MG/ML (ATIVAN) VIAL IVP ONE (16:30)
[2017-06-20 16:37] LABS: BASOPHILS % (AUTO) 0 % (0-10); EOSINOPHILS # (AUTO) 0.1 10^3/uL (0.0-0.3); EOSINOPHILS % (AUTO) 1 % (0-10); LYMPHOCYTES # (AUTO) 2.8 X 10^3 (1.0-4.0); LYMPHOCYTES % (AUTO) 36 % (12-44); MEAN CORPUSCULAR HEMOGLOBIN 32 PG (25-34); MEAN CORPUSCULAR HGB CONC 36 G/DL (32-36); MEAN CORPUSCULAR VOLUME 90 FL (80-99); MEAN PLATELET VOLUME 9.8 FL (7.4-10.4); MONOCYTES # (AUTO) 0.5 X 10^3 (0.0-1.0); MONOCYTES % (AUTO) 6 % (0-12); NEUTROPHILS # (AUTO) 4.4 X 10^3 (1.8-7.8); NEUTROPHILS % (AUTO) 56 % (42-75); PLATELET COUNT 253 10^3/uL (130-400); RED BLOOD COUNT 4.91 10^6/uL (4.35-5.85); RED CELL DISTRIBUTION WIDTH 11.7 % (10.0-14.5); WHITE BLOOD COUNT 7.9 10^3/uL (4.3-11.0)
--- NOTE | 2017-06-20 16:51 | Diagnostic Imaging Report ---
INDICATION: Weakness. COMPARISON: 02/11/2017. FINDINGS: Frontal and lateral views of the chest demonstrate stable scoliosis. The lungs remain clear. No infiltrate is identified. The heart is normal. There is no pneumothorax. IMPRESSION: No acute cardiopulmonary findings. Dictated by: Dictated on workstation # [id number]
[2017-06-20 16:57] LABS: ALANINE AMINOTRANSFERASE 24 U/L (0-55); ALBUMIN 4.7 GM/DL (3.2-4.5); ANION GAP 9 MMOL/L (5-14); ASPARTATE AMINO TRANSFERASE 20 U/L (5-34); BILIRUBIN,TOTAL 0.8 MG/DL (0.1-1.0); BLOOD UREA NITROGEN 11 MG/DL (7-18); BUN/CREATININE RATIO 13; CALCIUM 9.3 MG/DL (8.5-10.1); CARBON DIOXIDE 26 MMOL/L (21-32); CHLORIDE 106 MMOL/L (98-107); CREATININE SERUM 0.84 MG/DL (0.60-1.30); GFR ESTIMATED > 60; GLUCOSE 88 MG/DL (70-105); POTASSIUM 3.4 MMOL/L (3.6-5.0); SODIUM 141 MMOL/L (135-145); TOTAL PROTEIN 6.9 GM/DL (6.4-8.2); hs C REACTIVE PROTEIN 0.01 MG/DL (0.00-0.50)
[2017-06-20 17:02] LABS: ERYTHROCYTE SEDIMENTATION RATE 1 MM/HR (0-15)
[2017-06-20 17:18] LABS: THYROID STIMULATING HORMONE 0.84 UIU/ML (0.35-4.94)
[2017-06-20 18:13] VITALS: BP 134/88
== END 2017-06-20 18:12 | disposition home or self-care (01) ==
LOC: EDUNIT# 16:09 → ER 16:11
DX: F41.9 Anxiety disorder, unspecified; K58.9 Irritable bowel syndrome, unspecified; Z90.89 Acquired absence of other organs; Z96.0 Presence of urogenital implants
CPT/HCPCS: 36415; 71020; 80053; 80346; 84439; 84443; 85025; 85652; 86141; 93005; 96374

== ENCOUNTER 2017-10-12 08:14 | Emergency (ER) | payer SELFPAY ==
[~2017-10-12] VITALS: Ht 175.3 cm; Wt 59.0 kg
[2017-10-12] MEDS ORDERED: ONDANSETRON 4 MG/2 ML (SDV) Z0FRAN IVP ONE (08:30)
[2017-10-12] MEDS ORDERED: NS IV 1000 ML 1,000 ML IV SCH (08:30)
[2017-10-12 09:10] LABS: BASOPHILS % (AUTO) 0 % (0-10); EOSINOPHILS % (AUTO) 1 % (0-10); HEMATOCRIT 46 % (40-54); HEMOGLOBIN 16.5 G/DL (13.3-17.7); LYMPHOCYTES # (AUTO) 1.3 X 10^3 (1.0-4.0); LYMPHOCYTES % (AUTO) 21 % (12-44); MEAN CORPUSCULAR HEMOGLOBIN 32 PG (25-34); MEAN CORPUSCULAR HGB CONC 36 G/DL (32-36); MEAN CORPUSCULAR VOLUME 89 FL (80-99); MEAN PLATELET VOLUME 9.8 FL (7.4-10.4); MONOCYTES # (AUTO) 0.4 X 10^3 (0.0-1.0); MONOCYTES % (AUTO) 7 % (0-12); NEUTROPHILS # (AUTO) 4.2 X 10^3 (1.8-7.8); NEUTROPHILS % (AUTO) 72 % (42-75); PLATELET COUNT 209 10^3/uL (130-400); RED BLOOD COUNT 5.14 10^6/uL (4.35-5.85); RED CELL DISTRIBUTION WIDTH 11.7 % (10.0-14.5); WHITE BLOOD COUNT 5.9 10^3/uL (4.3-11.0)
[2017-10-12 09:30] LABS: ALANINE AMINOTRANSFERASE 20 U/L (0-55); ALBUMIN 4.6 GM/DL (3.2-4.5); ALKALINE PHOSPHATASE 60 U/L (40-136); BILIRUBIN,TOTAL 0.4 MG/DL (0.1-1.0); BUN/CREATININE RATIO 11; CALCIUM 9.4 MG/DL (8.5-10.1); CARBON DIOXIDE 26 MMOL/L (21-32); CHLORIDE 106 MMOL/L (98-107); CREATININE SERUM 0.84 MG/DL (0.60-1.30); GFR ESTIMATED > 60; GLUCOSE 101 MG/DL (70-105); POTASSIUM 3.9 MMOL/L (3.6-5.0); SODIUM 143 MMOL/L (135-145); TOTAL PROTEIN 6.9 GM/DL (6.4-8.2)
[2017-10-12 10:47] LABS: BILIRUBIN,URINE NEGATIVE (NEGATIVE); CLARITY,URINE CLEAR; COLOR,URINE YELLOW; GLUCOSE, URINE (UA) NEGATIVE (NEGATIVE); KETONES,URINE NEGATIVE (NEGATIVE); LEUKOCYTE ESTERASE ,URINE NEGATIVE (NEGATIVE); NITRITE,URINE NEGATIVE (NEGATIVE); PH,URINE 6 (5-9); PROTEIN,URINE NEGATIVE (NEGATIVE); UROBILINOGEN,URINE NORMAL (NORMAL)
[2017-10-12 10:58] LABS: BACTERIA,URINE NEGATIVE /HPF; SQUAMOUS EPITHELIAL CELL,UR RARE /HPF
--- NOTE | 2017-10-12 11:57 | ED Abdominal Pain ---
General Chief Complaint: Abdominal/GI Problems Stated Complaint: N/V/D Nursing Triage Note: Pt c/o n/v since 0400. Pt also reports diarrhea x2-3 days. Sepsis Screen: No Definite Risk Source of Information: Patient Exam Limitations: No Limitations History of Present Illness Time Seen By Provider: 11:40 Initial Comments Here with report of diarrhea that started yesterday morning and vomiting that started this morning. States he had copious diarrhea yesterday and several episodes of vomiting today. Denies significant abdominal pain. No report of fever but did have some chills. No report of blood in vomit or stool. Patient was treated prior to my evaluation and states she is actually feeling much better now. Timing/Duration: 1-2 Days Severity/Quality: Moderate, Cramping Location: Generalized Abdomen Modifying Factors: Improves With Defecating, Worsens With Eating, Improves With Vomiting Associated Symptoms: No Chest Pain, Nausea/Vomiting, No Shortness of Air, Weakness Allergies and Home Medications Allergies Coded Allergies: NKANo Known Allergies (Unverified Allergy, Mild, 02/18/17) Home Medications Amoxicillin 500 Mg Capsule, 500 MG PO TID, #30 Ref 0 Prescribed by: RICHARD FIERRO on 02/18/17 0159 Hydrocodone/Acetaminophen 1 Each Tablet, 1 EACH PO Q4H PRN for PAIN, #10 Prescribed by: SOPHIE RODRIGUEZ on 10/10/16 1451 Hydrocodone/Acetaminophen 1 Each Tablet, 1 EACH PO Q6H, #10 Ref 0 Prescribed by: RICHARD FIERRO on 02/18/17 0159 Hyoscyamine Sulfate 0.125 Mg Tab, 1-2 EACH PO Q4HR PRN PRN for ABDOMINAL PAIN, # 10 Prescribed by: TON SANTOYO on 08/10/14 0201 Hyoscyamine Sulfate 0.125 Mg Tab.subl, 1-2 TAB SL Q4H, #10 Prescribed by: TON SANTOYO on 02/11/172002 Ketorolac Tromethamine 5 Ml Drops, 1 DROP OP Q6H PRN for PAIN for 2 Days Prescribed by: SOPHIE RODRIGUEZ on 10/10/16 1451 Ondansetron 4 Mg Tab.rapdis, 4 MG PO Q4H, #10 Prescribed by: TON SANTOYO on 02/11/17 2003 Ondansetron Hcl 4 Mg Tab, 4 MG SL Q4H, #5 FOR NAUSEA AND VOMITING Prescribed by: TON SANTOYO on 08/10/14 0201 Review of Systems Constitutional: see HPI, chills, No fever EENTM: No Symptoms Reported Respiratory: No Symptoms Reported Cardiovascular: No Symptoms Reported Gastrointestinal: See HPI, Abdominal Pain, Diarrhea, Nausea, Vomiting Genitourinary: No Symptoms Reported Musculoskeletal: no symptoms reported All Other Systems Reviewed Negative Unless Noted: Yes Past Qjjtnog-Khjmwb-Mcfmmg Hx Patient Social History Alcohol Use: Denies Use Recreational Drug Use: No Drug of Choice: Marijuana daily Smoking Status: Current Everyday Smoker 2nd Hand Smoke Exposure: Yes Recent Foreign Travel: No Contact w/Someone Who Travel: No Recent Infectious Disease Expo: No Recent Hopitalizations: No Immunizations Up To Date Tetanus Booster (TDap): Unknown Seasonal Allergies Seasonal Allergies: No Surgeries History of Surgeries: Yes (RENAL STENT) Surgeries: Adenoidectomy, Renal, Tonsillectomy Respiratory History of Respiratory Disorde: No Cardiovascular History of Cardiac Disorders: Yes Cardiac Disorders: Heart Murmur Neurological History of Neurological Disord: No Reproductive System Hx Reproductive Disorders: No Sexually Transmitted Disease: No Genitourinary History of Genitourinary Disor: No Gastrointestinal History of Gastrointestinal Di: Yes (IBS) Gastrointestinal Disorders: Irritable Bowel Musculoskeletal History of Musculoskeletal Dis: No Musculoskeletal Disorders: Scoliosis Endocrine History of Endocrine Disorders: No HEENT History of HEENT Disorders: No Cancer History of Cancer: No Psychosocial History of Psychiatric Problem: No Integumentary History of Skin or Integumenta: No Blood Transfusions History of Blood Disorders: No Reviewed Nursing Assessment Reviewed/Agree w Nursing PMH: Yes Family Medical History Significant Family History: No Pertinent Family Hx Physical Exam Vital Signs VS - Last 72 Hours, by Label 10/12/17 08:50 Temp 98.5 Pulse 68 Resp 18 B/P (MAP) 129/93 (105) Pulse Ox 99 O2 Delivery Room Air Capillary Refill : Less Than 3 Seconds General Appearance: WD/WN, no apparent distress HEENT: PERRL/EOMI, pharynx normal Neck: full range of motion, supple Respiratory: lungs clear, normal breath sounds Cardiovascular: regular rate, rhythm, no murmur Peripheral Pulses: 2+ Dorsalis Pedis (R), 2+ Left Dors-Pedis (L), 2+ Radial Pulses (R), 2+ Radial Pulses (L) Gastrointestinal: non tender, soft Extremities: non-tender, normal inspection Neurologic/Psychiatric: alert, oriented x 3 Skin: normal color, warm/dry Progress/Results/Core Measures Results/Orders Lab Results Laboratory Tests Test 10/12/17 09:02 10/12/17 10:30 Range/Units White Blood Count 5.9 4.3-11.0 10^3/uL Red Blood Count 5.14 4.35-5.85 10^6/uL Hemoglobin 16.5 13.3-17.7 G/DL Hematocrit 46 40-54 % Mean Corpuscular Volume 89 80-99 FL Mean Corpuscular Hemoglobin 32 25-34 PG Mean Corpuscular Hemoglobin Concent 36 32-36 G/DL Red Cell Distribution Width 11.7 10.0-14.5 % Platelet Count 209 130-400 10^3/uL Mean Platelet Volume 9.8 7.4-10.4 FL Neutrophils (%) (Auto) 72 42-75 % Lymphocytes (%) (Auto) 21 12-44 % Monocytes (%) (Auto) 7 0-12 % Eosinophils (%) (Auto) 1 0-10 % Basophils (%) (Auto) 0 0-10 % Neutrophils # (Auto) 4.2 1.8-7.8 X 10^3 Lymphocytes # (Auto) 1.3 1.0-4.0 X 10^3 Monocytes # (Auto) 0.4 0.0-1.0 X 10^3 Eosinophils # (Auto) 0.0 0.0-0.3 10^3/uL Basophils # (Auto) 0.0 0.0-0.1 10^3/uL Sodium Level 143 135-145 MMOL/L Potassium Level 3.9 3.6-5.0 MMOL/L Chloride Level 106 98-107 MMOL/L Carbon Dioxide Level 26 21-32 MMOL/L Anion Gap 11 5-14 MMOL/L Blood Urea Nitrogen 9 7-18 MG/DL Creatinine 0.84 0.60-1.30 MG/DL Estimat Glomerular Filtration Rate > 60 BUN/Creatinine Ratio 11 Glucose Level 101 70-105 MG/DL Calcium Level 9.4 8.5-10.1 MG/DL Total Bilirubin 0.4 0.1-1.0 MG/DL Aspartate Amino Transf (AST/SGOT) 20 5-34 U/L Alanine Aminotransferase (ALT/SGPT) 20 0-55 U/L Alkaline Phosphatase 60 40-136 U/L Total Protein 6.9 6.4-8.2 GM/DL Albumin 4.6 H 3.2-4.5 GM/DL Urine Color YELLOW Urine Clarity CLEAR Urine pH 6 5-9 Urine Specific Ulysses 1.010 L 1.016-1.022 Urine Protein NEGATIVE NEGATIVE Urine Glucose (UA) NEGATIVE NEGATIVE Urine Ketones NEGATIVE NEGATIVE Urine Nitrite NEGATIVE NEGATIVE Urine Bilirubin NEGATIVE NEGATIVE Urine Urobilinogen NORMAL NORMAL MG/DL Urine Leukocyte Esterase NEGATIVE NEGATIVE Urine RBC (Auto) NEGATIVE NEGATIVE Urine RBC NONE /HPF Urine WBC NONE /HPF Urine Squamous Epithelial Cells RARE /HPF Urine Crystals NONE /LPF Urine Bacteria NEGATIVE /HPF Urine Casts NONE /LPF Urine Mucus SMALL H /LPF Urine Culture Indicated NO Medications Given in ED Current Medications Medications Dose Ordered Sig/Sabrina Route Start Time Stop Time Status Last Admin Dose Admin Ondansetron HCl 8 mg ONCE ONCE IVP 10/12/17 08:30 10/12/17 08:31 DC 10/12/17 09:01 8 MG Vital Signs/I&O Vital Sign - Last 12Hours 10/12/17 08:50 Temp 98.5 Pulse 68 Resp 18 B/P (MAP) 129/93 (105) Pulse Ox 99 O2 Delivery Room Air Blood Pressure Mean: 105 Progress Note : Progress Note Seen and evaluated. Patient did receive 1 L normal saline as well as 4 mg of Zofran IV. This did markedly improve his symptoms. Overall feeling much better now. Labs and UA are reviewed. Discharged home with return precautions. Patient verbalize understanding instructions and agreement with plan. Departure Impression Impression: Primary Impression: Nausea and vomiting Qualified Codes: R11.2 - Nausea with vomiting, unspecified Additional Impressions: Dehydration Acute diarrhea Disposition: HOME, SELF-CARE Condition: Improved Departure-Patient Inst. Decision time for Depature: 11:56 Referrals: NO,LOCAL PHYSICIAN (PCP/Family) Primary Care Physician Patient Instructions: Dehydration, Adult (DC), Diarrhea and Traveler's Diarrhea , Adult (DC), Nausea and Vomiting, Adult (DC) Add. Discharge Instructions: All discharge instructions reviewed with patient and/or family. Voiced understanding. Take medications as directed. Clear liquid diet for 24 hours and advance as tolerated. Return for worse pain, fever, vomiting, weakness, breathing problems or other concerns as needed. Follow-up with your doctor regarding evaluation and and thyroid studies as needed. Scripts Promethazine HCl (Promethazine Tablet) 25 Mg Tablet 25 MG PO Q8H Y for NAUSEA/VOMITING, #14 TAB 0 Refills Prov: RICHARD FIERRO MD 10/12/17 RICHARD FIERRO MD Oct 12, 2017 11:57
[2017-10-12] MEDS ORDERED: PROM25TA14 PO (11:58)
[2017-10-12 12:04] VITALS: BP 136/89
== END 2017-10-12 12:08 | disposition home or self-care (01) ==
LOC: EDUNIT# 08:14 → ER 08:16
DX: E86.0 Dehydration (principal); R11.2 Nausea with vomiting, unspecified; R19.7 Diarrhea, unspecified; F17.210 Nicotine dependence, cigarettes, uncomplicated; K58.9 Irritable bowel syndrome, unspecified; Z90.89 Acquired absence of other organs; Z96.0 Presence of urogenital implants
CPT/HCPCS: 36415; 80053; 81000; 85025

== ENCOUNTER 2018-06-06 18:25 | Emergency (ER) | payer OTHER ==
[~2018-06-06] VITALS: Ht 154.9 cm; Wt 54.4 kg
[~2018-06-06 18:25] MED LIST changes: -HYDR-3816 PO; +HYDR-4226 PO; -HYDR-757 PO; +PROM25TA14 PO
[2018-06-06] MEDS ORDERED: DEXAMETHASONE PF 10 MG/ML (DECADRON) VIAL ONE (18:39)
--- NOTE | 2018-06-06 18:39 | ED Integumentary General ---
General Chief Complaint: Skin/Wound Problems Stated Complaint: POISON DEE, SWELLING IN EYES Source: patient Exam Limitations: no limitations History of Present Illness Date Seen by Provider: Jun 06, 2018 Time Seen by Provider: 18:37 Initial Comments To ER with itching around both of his eyes. This began last night. He states that he gets poison dee several times yearly this is typically how it starts, he states that he is normally gets a shot of steroids and this helps improve his symptoms dramatically. Timing/Duration: just prior to arrival Severity: moderate Location: face Allergies and Home Medications Allergies Coded Allergies: NKANo Known Allergies (Unverified Allergy, Mild, 02/18/17) Home Medications Amoxicillin 500 Mg Capsule, 500 MG PO TID Prescribed by: RICHARD FIERRO on 02/18/17 015 Hydrocodone Bit/Acetaminophen 1 Each Tablet, 1 EACH PO Q6H Prescribed by: RICHARD FIERRO on 02/18/17 015 Hydrocodone/Acetaminophen 1 Each Tablet, 1 EACH PO Q4H PRN for PAIN Prescribed by: SOPHIE RODRIGUEZ on 10/10/16 145 Hyoscyamine Sulfate 0.125 Mg Tab, 1-2 EACH PO Q4HR PRN PRN for ABDOMINAL PAIN Prescribed by: TON SANTOYO on 08/10/14 020 Hyoscyamine Sulfate 0.125 Mg Tab.subl, 1-2 TAB SL Q4H Prescribed by: TON SANTOYO on 02/11/172002 Ketorolac Tromethamine 5 Ml Drops, 1 DROP OP Q6H PRN for PAIN Prescribed by: SOPHIE RODRIGUEZ on 10/10/16 145 Ondansetron 4 Mg Tab.rapdis, 4 MG PO Q4H Prescribed by: TON SANTOYO on 02/11/172002 Ondansetron Hcl 4 Mg Tab, 4 MG SL Q4H FOR NAUSEA AND VOMITING Prescribed by: TON SANTOYO on 08/10/14 020 Promethazine HCl 25 Mg Tablet, 25 MG PO Q8H PRN for NAUSEA/VOMITING Prescribed by: RICHARD FIERRO on 10/12/17 1158 Patient Home Medication List Home Medication List Reviewed: Yes Review of Systems Review of Systems Constitutional: see HPI EENTM: see HPI Respiratory: no symptoms reported Cardiovascular: no symptoms reported Genitourinary: no symptoms reported Musculoskeletal: no symptoms reported Skin: see HPI Psychiatric/Neurological: No Symptoms Reported Endocrine: No Symptoms Reported Hematologic/Lymphatic: No Symptoms Reported Past Llvdxlq-Tucjjx-Vxzhao Hx Patient Social History Drug of Choice: Marijuana daily 2nd Hand Smoke Exposure: Yes Recent Foreign Travel: No Contact w/Someone Who Travel: No Recent Hopitalizations: No Immunizations Up To Date Tetanus Booster (TDap): Unknown Seasonal Allergies Seasonal Allergies: No Past Medical History Surgeries: Yes (RENAL STENT) Adenoidectomy, Renal, Tonsillectomy Respiratory: No Cardiac: Yes Heart Murmur Neurological: No Reproductive Disorders: No Sexually Transmitted Disease: No Genitourinary: No Gastrointestinal: Yes (IBS) Irritable Bowel Musculoskeletal: No Scoliosis Endocrine: No HEENT: No Cancer: No Psychosocial: No Integumentary: No Blood Disorders: No Family Medical History No Pertinent Family Hx Physical Exam Vital Signs Capillary Refill : General Appearance: WD/WN, no apparent distress HEENT: PERRL/EOMI, normal ENT inspection, TMs normal, other (there is no periorbital edema or rash) Neck: non-tender, full range of motion Cardiovascular: regular rate, rhythm, no murmur Respiratory: normal breath sounds, no respiratory distress, no accessory muscle use Gastrointestinal: normal bowel sounds, non tender Neurologic/Psychiatric: alert, normal mood/affect, oriented x 3 Skin: normal color, warm/dry Skin Problem Location: face Departure Impression Primary Impression: Contact dermatitis due to poison dee Disposition: 01 HOME, SELF-CARE Condition: Stable Departure-Patient Inst. Decision time for Depature: 18:39 Referrals: NO,LOCAL PHYSICIAN (PCP/Family) Primary Care Physician Patient Instructions: Poison Dee Add. Discharge Instructions: 1. Return to ER for any concerns 2. Follow-up with your doctor later this week All discharge instructions reviewed with patient and/or family. Voiced understanding. SOPHIE RODRIGUEZ [employer] Jun 06, 2018 18:39
[2018-06-06] MEDS ORDERED: DEXAMETHASONE 10 MG/ML (DECADRON) 1 ML VIAL IM ONE (18:45)
[2018-06-06 18:48] VITALS: BP 132/87
== END 2018-06-06 18:48 | disposition home or self-care (01) ==
LOC: EDUNIT# 18:25 → ER 18:26
DX: L23.7 Allergic contact dermatitis due to plants, except food (principal); F12.10 Cannabis abuse, uncomplicated; Z77.22 Contact with and (suspected) exposure to environmental tobacco smoke (acute) (chronic); Z90.89 Acquired absence of other organs; Z96.0 Presence of urogenital implants; Z87.19 Personal history of other diseases of the digestive system
CPT/HCPCS: 96374; 99284

== ENCOUNTER 2018-11-04 07:02 | Emergency (ER) | payer OTHER ==
[~2018-11-04] VITALS: Ht 175.3 cm; Wt 54.4 kg
[2018-11-04] MEDS ORDERED: IBUPROFEN 800 MG (MOTRIN) TAB PO STA (07:30)
[2018-11-04] MEDS ORDERED: ONDANSETRON 4 MG (ZOFRAN) ORAL DISSOLVE TAB SL STA (07:30)
--- NOTE | 2018-11-04 08:01 | ED Cough/URI ---
General Chief Complaint: Cough/Cold/Flu Symptoms Stated Complaint: VOMITING;FEVER;BODY ACHE;WEAKNESS Nursing Triage Note: PT AMBULATED TO ROOM 6 PT CO OF COLD COUGH AND FLU SX. PT STATES HAS HAD FEVER EARLY THIS AM 101.5 AND NAUSEA THIS AM Sepsis Screen: No Definite Risk Source: patient Exam Limitations: no limitations History of Present Illness Date Seen by Provider: Nov 04, 2018 Time Seen by Provider: 07:45 Initial Comments Here with complaint of fever, chills, cough and vomiting since about 330 this morning. Reports vomiting several times. He did not take anything over-the- counter for his fever but did take a cold bath. Arrives without fever is morning. Timing/Duration: this morning Severity/Quality: moderate, dry cough Associated Symptoms: cough, fever/chills, muscle aches, nasal congestion, sore throat Allergies and Home Medications Allergies Coded Allergies: NKANo Known Allergies (Unverified Allergy, Mild, 02/18/17) Home Medications No Active Prescriptions or Reported Meds Patient Home Medication List Home Medication List Reviewed: Yes Review of Systems Review of Systems Constitutional: see HPI, chills, fever EENTM: see HPI Respiratory: see HPI; No wheezing Cardiovascular: no symptoms reported Gastrointestinal: No abdominal pain, No diarrhea; nausea, vomiting Skin: no symptoms reported Past Nvqdlpb-Hnuywt-Cjzxbm Hx Past Med/Social Hx: Reviewed Nursing Past Med/Soc Hx Patient Social History Alcohol Use: Denies Use Drug of Choice: Marijuana daily Type Used: Electronic/Vapor 2nd Hand Smoke Exposure: Yes Recent Foreign Travel: No Contact w/Someone Who Travel: No Recent Infectious Disease Expo: No Recent Hopitalizations: No Immunizations Up To Date Tetanus Booster (TDap): Unknown Seasonal Allergies Seasonal Allergies: No Past Medical History Surgeries: Yes (RENAL STENT) Adenoidectomy, Renal, Tonsillectomy Respiratory: No Cardiac: Yes Heart Murmur Neurological: No Reproductive Disorders: No Sexually Transmitted Disease: No Genitourinary: Yes (ONE FUNCTIONING KIDNEY) Gastrointestinal: Yes (IBS) Irritable Bowel Musculoskeletal: No Scoliosis Endocrine: No HEENT: No Cancer: No Psychosocial: No Integumentary: No Blood Disorders: No Family Medical History Reviewed Nursing Family Hx No Pertinent Family Hx Physical Exam Vital Signs - First Documented 11/04/18 07:15 Temp 99.5 Pulse 91 Resp 14 B/P (MAP) 130/70 (90) Pulse Ox 98 Capillary Refill : Less Than 3 Seconds Height: 5'9.00" Weight: 120lbs. oz. 54.588294fa; 19.93 BMI Method:Stated General Appearance: WD/WN, no apparent distress HEENT: PERRL/EOMI, TMs normal, pharyngeal erythema; No tonsillar exudate Neck: full range of motion, supple; No lymphadenopathy (R), No lymphadenopathy (L) Respiratory: lungs clear, normal breath sounds, no respiratory distress Cardiovascular: regular rate, rhythm, no murmur Gastrointestinal: non tender, soft Neurologic/Psychiatric: alert, normal mood/affect, oriented x 3 Skin: normal color, warm/dry Progress/Results/Core Measures Suspected Sepsis Recent Fever Within 48 Hours: No Infection Criteria Present: None New/Unexplained Altered Menta: No Sepsis Screen: No Definite Risk SIRS Temperature:99.5 Pulse: 91 Respiratory Rate: 14 Blood Pressure 130 /70 Mean: 90 Results/Orders Micro Results Microbiology 11/04/18 Influenza Types A,B Antigen ([place]) - Final, Complete My Orders Orders - RICHARD FIERRO MD Ondansetron Oral Dissolve Tab (Zofran (11/04/18 07:30) Influenza A And B Antigens (11/04/18 07:30) Ibuprofen Tablet (Motrin Tablet) (11/04/18 07:30) Vital Signs/I&O 11/04/18 07:15 Temp 99.5 Pulse 91 Resp 14 B/P (MAP) 130/70 (90) Pulse Ox 98 Capillary Refill : Less Than 3 Seconds Blood Pressure Mean: 90 Progress Note : Progress Note Seen and evaluated. Zofran 4 mg by mouth and ibuprofen 800 mg by mouth ordered. Monitor patient. 0825: Overall feeling better. Influenza negative. Discharged home with return precautions. Patient verbalize understanding instructions and agreement with plan. Departure Impression Primary Impression: Influenza-like symptoms Disposition: 01 HOME, SELF-CARE Condition: Stable Departure-Patient Inst. Decision time for Depature: 08:27 Referrals: NO,LOCAL PHYSICIAN (PCP/Family) Primary Care Physician Patient Instructions: Viral Upper Respiratory Infection, Adult (DC), Fever, Adult (DC) Add. Discharge Instructions: All discharge instructions reviewed with patient and/or family. Voiced understanding. You may take ibuprofen 600 mg every 8 hours as needed for fever or pain. You may take Tylenol/acetaminophen 1000 mg every 8 hours as needed for fever or pain. Drink plenty of fluids and get plenty of rest. You may take Benadryl/ diphenhydramine 25 mg every 6 hours as needed for nasal congestion. You may use Afrin nasal spray or the generic, 12 hour relief, 2 sprays to each muscle twice daily for 3 days only and then stop. Do not use more than 3 days. Follow -up with your Dr. in a few days for recheck. Return for worse pain, fever, vomiting, weakness, breathing problems or other concerns as needed. Scripts No Active Prescriptions or Reported Meds RICHARD FIERRO MD Nov 04, 2018 08:01
[2018-11-04 08:37] VITALS: BP 127/82
== END 2018-11-04 08:27 | disposition home or self-care (01) ==
LOC: EDUNIT# 07:02 → ER 07:03
DX: R50.9 Fever, unspecified (principal); R05 Cough; R11.10 Vomiting, unspecified; F12.10 Cannabis abuse, uncomplicated; K58.9 Irritable bowel syndrome, unspecified; Z77.22 Contact with and (suspected) exposure to environmental tobacco smoke (acute) (chronic); Z90.89 Acquired absence of other organs
CPT/HCPCS: 87804

== ENCOUNTER 2021-10-24 14:42 | Emergency (ER) | payer OTHER ==
[~2021-10-24] VITALS: Ht 175 cm; Wt 54.0 kg
[2021-10-24 15:30] VITALS: BP 135/75
--- NOTE | 2021-10-24 15:56 | ED Cough/URI ---
General Chief Complaint: COVID19 Suspect/Confirmed Stated Complaint: FEVER,N/V,CHILLS,KING,ABD PAIN Nursing Triage Note: PT AMB TO RM5 PT CO OF FEVER, N/V, DRY COUGH, BODY ACHES X1 DAY Source: patient Exam Limitations: no limitations History of Present Illness Date Seen by Provider: Oct 24, 2021 Time Seen by Provider: 15:54 Initial Comments Patient is a 31-year-old male who presents ED with flulike symptoms. Symptoms started this morning when he was driving to work. Still have body aches and fatigue. Patient got the [place] vomited 2 or 3 times. Came home vomited a few more times. Took nausea medication with some improvement. Tolerating fluids at bedside. Reports chills body aches generalized joint discomfort. Possible exposure at work to Covid. Not up-to-date of his Covid vaccine. Denies of any chest pain, cough, sore throat, ear pain, decreased urine output. Patient took Tylenol at home for body pains Allergies and Home Medications Allergies Coded Allergies: BEVERLYANo Known Allergies (Unverified Allergy, Mild, 02/18/17) Patient Home Medication List Home Medication List Reviewed: Yes Review of Systems Review of Systems Constitutional: chills; No diaphoresis; fever, malaise, weakness EENTM: No eye pain Respiratory: No orthopnea, No short of breath Cardiovascular: No chest pain, No edema Gastrointestinal: No abdominal pain, No nausea, No vomiting Musculoskeletal: No back pain, No gout, No joint pain; muscle stiffness, muscle cramps Skin: No change in color, No change in hair/nails All Other Systems Reviewed Negative Unless Noted: Yes Past Kfxvxbf-Otjgxc-Vovzhp Hx Patient Social History Tobacco Use?: Yes Tobacco type used: Cigarettes Smoking Status: Current Everyday Smoker Substance use?: No Alcohol Use?: No Pt feels they are or have been: No Immunizations Up To Date Tetanus Booster (TDap): Unknown Seasonal Allergies Seasonal Allergies: No Past Medical History Surgeries: Yes (RENAL STENT) Adenoidectomy, Renal, Tonsillectomy Respiratory: No Cardiac: Yes Heart Murmur Neurological: No Reproductive Disorders: No Sexually Transmitted Disease: No Genitourinary: Yes (ONE FUNCTIONING KIDNEY) Gastrointestinal: Yes (IBS) Irritable Bowel Musculoskeletal: No Scoliosis Endocrine: No HEENT: No Cancer: No Psychosocial: No Integumentary: No Blood Disorders: No Family Medical History No Pertinent Family Hx Physical Exam Vital Signs - First Documented 10/24/21 15:30 Temp 37.8 Pulse 92 Resp 18 B/P (MAP) 135/75 (95) Pulse Ox 98 O2 Delivery Room Air Capillary Refill : Less Than 3 Seconds Height: 5'9.00" Weight: 120lbs. oz. [id number]; 17.00 BMI Method:Stated General Appearance: WD/WN, no apparent distress Eyes: Bilateral Eye Normal Inspection, Bilateral Eye PERRL, Bilateral Eye EOMI HEENT: PERRL/EOMI, normal ENT inspection, TMs normal, pharynx normal Neck: non-tender, full range of motion, supple, normal inspection Respiratory: chest non-tender, lungs clear, normal breath sounds, no respiratory distress, no accessory muscle use Cardiovascular: regular rate, rhythm, no edema, no gallop, no JVD Gastrointestinal: normal bowel sounds, non tender, soft, no organomegaly Extremities: normal range of motion, non-tender, normal inspection, no pedal edema, no calf tenderness Skin: normal color, warm/dry Progress/Results/Core Measures Suspected Sepsis SIRS Temperature: Pulse: 92 Respiratory Rate: 18 Blood Pressure 135 /75 Mean: 95 Results/Orders Lab Results Laboratory Tests Test 10/24/21 15:34 Range/Units Influenza Type A (RT-PCR) Not Detected Not Detecte Influenza Type B (RT-PCR) Not Detected Not Detecte SARS-CoV-2 RNA (RT-PCR) Detected H Not Detecte My Orders Orders - MINH GALINDO Covid 19 Inhouse Test (10/24/21 15:35) Influenza A And B By Pcr (10/24/21 15:35) Vital Signs/I&O 10/24/21 15:30 Temp 37.8 Pulse 92 Resp 18 B/P (MAP) 135/75 (95) Pulse Ox 98 O2 Delivery Room Air Capillary Refill : Less Than 3 Seconds Blood Pressure Mean: 95 Departure Communication (PCP) Patient low-grade temp. Patient took Tylenol before arrival. Patient in no acute distress. Lung sounds clear bilateral. Covid positive. Not up-to-date on his vaccine. Quarantine at home for 10 to 14 days. Recommend hydration. If any worsening symptoms return back to ED for further evaluation. Provided work note. Impression Primary Impression: COVID-19 Disposition: 01 HOME, SELF-CARE Condition: Stable Departure-Patient Inst. Decision time for Depature: 16:34 Referrals: NO,LOCAL PHYSICIAN (PCP/Family) Primary Care Physician Patient Instructions: COVID-19 (DC) Work/School Note: Work Release Form Date Seen in the Emergency Department: Oct 24, 2021 Return to Work: Nov 05, 2021 MINH GALINDO Oct 24, 2021 15:56
== END 2021-10-24 16:39 | disposition home or self-care (01) ==
LOC: EDUNIT# 14:42 → ER 14:44
DX: U07.1 COVID-19 (principal); F17.210 Nicotine dependence, cigarettes, uncomplicated
CPT/HCPCS: 87636; 99283

== ENCOUNTER 2022-05-15 09:15 | Emergency (ER) | payer SELFPAY ==
[~2022-05-15] VITALS: Ht 175.3 cm; Wt 52.2 kg
--- NOTE | 2022-05-15 09:53 | ED General ---
General Chief Complaint: Fever-Adult/Adol Stated Complaint: FEVER - VOMITING - BODY ACHES - COUGH Nursing Triage Note: Pt states that he started having fever, cough, n/v yesterday. Covid+ at home. Source of Information: Patient Exam Limitations: No Limitations History of Present Illness Date Seen by Provider: May 15, 2022 Time Seen by Provider: 09:48 Initial Comments Patient is a 31-year-old male who presents to the emergency department today with a chief complaint of fever, body aches, nonproductive cough, nausea and vomiting. He states he started with body aches yesterday. Today his symptoms have worsened. He did take an at home COVID test and thinks he saw a faintly positive double line. He is a smoker. He denies feeling excessively short of breath. No black or bloody stools. No problems with urination. No rashes, joint pain or swelling. Has taken some avuk-jpr-qvafghi medications for his symptoms. All other review of systems reviewed and negative except as stated Timing/Duration: 1-2 Days Severity: Moderate Associated Systoms: Cough, Fever/Chills, Malaise, Nausea/Vomiting, Other (body aches) Allergies and Home Medications Allergies Coded Allergies: NKANo Known Allergies (Unverified Allergy, Mild, 02/18/17) Patient Home Medication List Home Medication List Reviewed: Yes Ondansetron (Ondansetron Odt) 4 Mg Tab.rapdis, 4 MG PO Q8H PRN for nausea Prescribed by: JOVANY GALARZA on 05/15/22 1012 Review of Systems Review of Systems Constitutional: see HPI, fever, malaise EENTM: no symptoms reported Respiratory: cough Cardiovascular: no symptoms reported Gastrointestinal: nausea, vomiting Genitourinary: no symptoms reported Musculoskeletal: muscle cramps Skin: no symptoms reported Psychiatric/Neurological: No Symptoms Reported All Other Systems Reviewed Negative Unless Noted: Yes Past Nszovqk-Vgdhwu-Mliguf Hx Patient Social History Tobacco Use?: Yes Tobacco type used: Cigarettes Smoking Status: Current Everyday Smoker Use of E-Cig and/or Vaping dev: No Substance use?: Yes Substance type: Marijuana Substance frequency: Couple times a week Alcohol Use?: No Pt feels they are or have been: No Immunizations Up To Date Tetanus Booster (TDap): Unknown Seasonal Allergies Seasonal Allergies: No Past Medical History Surgeries: Yes (RENAL STENT) Adenoidectomy, Renal, Tonsillectomy Respiratory: No Cardiac: Yes Heart Murmur Neurological: No Reproductive Disorders: No Sexually Transmitted Disease: No Genitourinary: Yes (ONE FUNCTIONING KIDNEY) Gastrointestinal: Yes (IBS) Irritable Bowel Musculoskeletal: No Scoliosis Endocrine: No HEENT: No Cancer: No Psychosocial: No Integumentary: No Blood Disorders: No Family Medical History No Pertinent Family Hx Physical Exam Vital Signs Vital Signs - First Documented 05/15/22 09:21 Temp 36.8 Pulse 71 Resp 18 B/P (MAP) 127/84 (98) Pulse Ox 98 O2 Delivery Room Air Capillary Refill : Less Than 3 Seconds Height, Weight, BMI Height: 5'9.00" Weight: 120lbs. oz. 54.901189ok; 16.00 BMI Method:Stated General Appearance: No Apparent Distress, WD/WN Eyes: Bilateral Eye Normal Inspection, Bilateral Eye PERRL, Bilateral Eye EOMI HEENT: PERRL/EOMI, TMs Normal, Pharynx Normal Neck: Normal Inspection, Supple Respiratory: Lungs Clear, Normal Breath Sounds, No Accessory Muscle Use, No Respiratory Distress Cardiovascular: Regular Rate, Rhythm, Normal Peripheral Pulses Gastrointestinal: Non Tender, Soft Extremity: Normal Capillary Refill, Normal Inspection, Normal Range of Motion, Non Tender, No Calf Tenderness, No Pedal Edema Neurologic/Psychiatric: Alert, Oriented x3, No Motor/Sensory Deficits, Normal Mood/Affect, painter spring II-XII Norm as Tested Skin: Normal Color, Warm/Dry Progress/Results/Core Measures Suspected Sepsis SIRS Temperature: Pulse: 71 Respiratory Rate: 18 Blood Pressure 127 /84 Mean: 98 Results/Orders Lab Results Laboratory Tests Test 05/15/22 09:27 Range/Units Influenza Type A (RT-PCR) Not Detected Not Detecte Influenza Type B (RT-PCR) Not Detected Not Detecte SARS-CoV-2 RNA (RT-PCR) Detected H Not Detecte My Orders Orders - JOVANY GALARZA MD Covid 19 Inhouse Test (05/15/22 09:20) Influenza A And B By Pcr (05/15/22 09:20) Isolation Central Supply Req (05/15/22 09:20) Vital Signs/I&O 05/15/22 05/15/22 05/15/22 05/15/22 09:21 09:30 09:45 10:29 Temp 36.8 36.8 Pulse 71 71 71 75 Resp 18 18 16 18 B/P (MAP) 127/84 (98) 127/84 127/84 136/99 Pulse Ox 98 98 98 97 O2 Delivery Room Air Room Air Room Air Room Air Capillary Refill : Less Than 3 Seconds Blood Pressure Mean: 98 Departure Impression Primary Impression: COVID-19 Disposition: 01 HOME, SELF-CARE Condition: Stable Departure-Patient Inst. Decision time for Depature: 10:11 Referrals: [facility] [place],LOCAL PHYSICIAN (PCP) Primary Care Physician Patient Instructions: COVID-19 ED Add. Discharge Instructions: Use the Zofran, every 8 hours as needed for nausea. Push oral fluids to stay well-hydrated. Alternate Tylenol and ibuprofen as needed for body aches and fever. Always take ibuprofen with a little food. Return to the emergency department for worsening symptoms such as shortness of breath, persistent cough, rash, persistent vomiting or any other emergent, concerning symptoms. Scripts Ondansetron (Ondansetron Odt) 4 Mg Tab.rapdis 4 MG PO Q8H PRN for nausea, #15 TAB Prov: JOVANY GALARZA MD 05/15/22 JOVANY GALARZA MD May 15, 2022 09:52
[2022-05-15] MEDS ORDERED: ONDA4TAB11 PO (10:12)
[2022-05-15 10:29] VITALS: BP 136/99
== END 2022-05-15 10:29 | disposition home or self-care (01) ==
LOC: EDUNIT# 09:15 → ER 09:17
DX: U07.1 COVID-19 (principal); F17.210 Nicotine dependence, cigarettes, uncomplicated; Z28.310 Unvaccinated for COVID-19
CPT/HCPCS: 87636; 99283

== ENCOUNTER 2022-12-25 10:26 | Emergency (ER) | payer SELFPAY ==
[~2022-12-25] VITALS: Ht 175 cm; Wt 56.6 kg
[~2022-12-25 10:26] MED LIST changes: +ONDA4TAB11 PO
--- NOTE | 2022-12-25 10:50 | ED EENT ---
History of Present Illness General Chief Complaint: Dental Problems/Pain Stated Complaint: JAW AND NECK PAIN Nursing Triage Note: PT PRESENTS TO ED VIA POV FROM HOME WITH COMPLAINTS OF R JAW/NECK AND EAR PAIN SINCE 1899 YESTERDAY. PT REPORTS HE TOOK 800 MG IBUPROFEN AND TYLENOL THIS AM WITH NO RELIEF. Source: patient, family () Exam Limitations: no limitations History of Present Illness Date Seen by Provider: Dec 25, 2022 Time Seen by Provider: 10:35 Initial Comments Patient presents for right jaw neck and ear pain since yesterday afternoon, rosa whatley. States he has taken ibuprofen and Tylenol which relieved. He believes it may be coming from his poor dentition. No swelling or drainage. No difficulty swallowing or speaking. All other systems reviewed and negative except documented per HPI. Voice recognition software was used to help create this chart Allergies and Home Medications Allergies Coded Allergies: NKANo Known Allergies (Unverified Allergy, Mild, 02/18/17) Patient Home Medication List Home Medication List Reviewed: Yes Hydrocodone/Acetaminophen (Hydrocodone-Acetamin 5-325 mg) 5 Mg-325 Mg Tablet, 1 TAB PO Q4H PRN for PAIN-MODERATE (5-7) Prescribed by: NACHO RIVERO MD on 12/25/22 1109 Ketorolac Tromethamine (Ketorolac Tromethamine) 10 Mg Tablet, 10 MG PO TID Prescribed by: NACHO RIVERO MD on 12/25/22 1108 Ondansetron (Ondansetron Odt) 4 Mg Tab.rapdis, 4 MG PO Q8H PRN for nausea Prescribed by: JOVANY GALARZA on 05/15/22 1012 Review of Systems Review of Systems Constitutional: see HPI Past Fcjobwz-Ctfhoy-Fredjk Hx Patient Social History Tobacco Use?: No Substance use?: Yes Substance type: Marijuana Substance frequency: Once in a while Alcohol Use?: No Pt feels they are or have been: No Immunizations Up To Date Tetanus Booster (TDap): Unknown Seasonal Allergies Seasonal Allergies: No Past Medical History Surgeries: Yes (RENAL STENT) Adenoidectomy, Renal, Tonsillectomy Respiratory: No Cardiac: Yes Heart Murmur Neurological: No Reproductive Disorders: No Sexually Transmitted Disease: No Genitourinary: Yes (ONE FUNCTIONING KIDNEY) Gastrointestinal: Yes (IBS) Irritable Bowel Musculoskeletal: No Scoliosis Endocrine: No HEENT: No Cancer: No Psychosocial: No Integumentary: No Blood Disorders: No Family Medical History No Pertinent Family Hx Physical Exam Vital Signs Vital Signs - First Documented 12/25/22 10:41 Temp 36.1 Pulse 68 Resp 18 B/P (MAP) 134/88 (103) Pulse Ox 100 Height, Weight, BMI Height: 5'9.00" Weight: 120lbs. oz. [id number]; 18.00 BMI Method:Stated General Appearance: WD/WN, no apparent distress Eyes: bilateral eye normal inspection, bilateral eye PERRL, bilateral eye EOMI Ears: bilateral ear auricle normal, bilateral ear canal normal, bilateral ear TM normal Nose: normal inspection Mouth/Throat: normal mouth inspection, pharynx normal, other (Tenderness palpation right lower jaw dentition. There are several broken teeth in this area with severe caries that look to extend down into the dentine. There is no abscess or swelling. No submandibular pain, swelling to indicate Ludwigs) Neck: non-tender, full range of motion, supple, normal inspection Cardiovascular: regular rate, rhythm, no murmur Respiratory: chest non-tender, normal breath sounds Gastrointestinal: non tender, soft Skin: normal color, warm/dry Progress/Results/Core Measures Results/Orders My Orders Orders - NACHO RIVERO DO Ketorolac Injection (Toradol Injection) (12/25/22 11:00) Medications Given in ED Vital Signs/I&O Blood Pressure Mean: 103 Departure Communication (Admissions) Patient is hemodynamically stable with no red flag symptoms. No evidence for Sonia's angina, peritonsillar abscess. No evidence for ear pathology causing symptoms. No obvious drainable dental abscess. He is discharged in stable condition with supportive care after he is given IV Toradol Impression Primary Impression: Dental caries extending into dentine Additional Impression: Pain, dental Disposition: 01 HOME, SELF-CARE Condition: Stable Departure-Patient Inst. Referrals: NO,LOCAL PHYSICIAN (PCP/Family) Primary Care Physician Patient Instructions: Fractured Tooth (DC), Dental Pain Add. Discharge Instructions: Take all medications as prescribed as needed. Hydrocodone may make you drowsy so do not drive or make important decisions while taking it. Recommend you take a stool softener while taking it as well. Do not take other anti-inflammatory medications while taking Toradol. Follow-up with a dentist at your earliest convenience. All discharge instructions reviewed with patient and/or family. Voiced understanding. Scripts Hydrocodone/Acetaminophen (Hydrocodone-Acetamin 5-325 mg) 5 Mg-325 Mg Tablet 1 TAB PO Q4H PRN for PAIN-MODERATE (5-7) for 3 Days, #12 TAB Prov: NACHO RIVERO DO 12/25/22 Ketorolac Tromethamine (Ketorolac Tromethamine) 10 Mg Tablet 10 MG PO TID for Pain for 3 Days, #9 TAB Prov: NACHO RIVERO DO 12/25/22 NACHO RIVERO DO Dec 25, 2022 10:50
[2022-12-25] MEDS ORDERED: KETOROLAC 15 MG/ML VIAL IM ONE (11:00)
[2022-12-25] MEDS ORDERED: KETO10TA PO (11:08)
[2022-12-25] MEDS ORDERED: ACHD5005 PO (11:08)
[2022-12-25 11:14] VITALS: BP 134/88
== END 2022-12-25 11:14 | disposition home or self-care (01) ==
LOC: EDUNIT# 10:26 → ER 10:27
DX: K02.9 Dental caries, unspecified (principal); Z28.310 Unvaccinated for COVID-19
CPT/HCPCS: 99284